=== PATIENT | female | born 2000 | race Caucasian/White ===

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

== ENCOUNTER 2021-08-27 21:50 | Emergency (ER) | payer BC, OTHER ==
[2021-08-27 22:40] VITALS: BP 114/71; PULSE 76
[2021-08-27] MEDS ORDERED: Sodium Chloride 0.9% 10 ML Syringe FLUSH PRN (22:44)
[2021-08-27] MEDS ORDERED: Ondansetron 4 MG/2 ML SDV IVPUSH ONE (22:44)
[2021-08-27] MEDS ORDERED: Sodium Chloride 0.9% 1,000 ML IV SCH (22:45)
--- NOTE | 2021-08-27 23:04 | EDM.PDOC ---
ED HPI GENERAL MEDICAL PROBLEM - General Chief Complaint: Abdominal Pain Stated Complaint: ABD PAIN Time Seen by Provider: 08/27/21 23:04 - History of Present Illness INITIAL COMMENTS - FREE TEXT/NARRATIVE: 20-year-old female presents the emergency room with what she thinks might be an appendicitis. The patient has had right lower quadrant pain through the day today. She has not had any associated nausea vomiting or diarrhea. She is having bowel movements. Last meal was around 6:00 this evening. Patient denies any history of abdominal surgeries in the past. She has some pain it is not real severe if she is out right and around it and bumped with a car does not seem to make it any worse. She is otherwise been eating and drinking normally. Treatments INSURANCE OFFICE SUPERVISOR: Reports: Other (see below) Other Treatments INSURANCE OFFICE SUPERVISOR: none Right Lower Abdomen Pain Score (Numeric/FACES): 5 - Related Data Allergies Allergy/AdvReac Type Severity Reaction Status Date / Time No Known Allergies Allergy Verified 08/27/21 22:58 Home Meds: Home Meds Ibuprofen 600 mg PO Q4H PRN 01/27/17 [History] Fexofenadine/Pseudoephedrine [Paula-D 24 Hour Tablet] 1 tab PO DAILY 08/27/21 [History] buPROPion [Wellbutrin] 150 mg PO DAILY 08/27/21 [History] norgestimate-ethinyl estradioL [Sprintec 28 Day Tablet] 1 tab PO DAILY 08/27/21 [History] Past Medical History - Past Health History Medical/Surgical History: Denies Medical/Surgical History Musculoskeletal History: Reports: Other (See Below) Other Musculoskeletal History: right wrist surgery - Past Surgical History HEENT Surgical History: Reports: Oral Surgery Social & Family History - Tobacco Use Tobacco Use Status *Q: Current Every Day Tobacco User Years of Tobacco use: 3 Packs/Tins Daily: 0.3 - Caffeine Use Caffeine Use: Reports: None - Recreational Drug Use Recreational Drug Use: No ED ROS GENERAL - Review of Systems Review Of Systems: See Below Constitutional: Reports: No Symptoms HEENT: Reports: No Symptoms Respiratory: Reports: No Symptoms Cardiovascular: Reports: No Symptoms GI/Abdominal: Reports: Abdominal Pain. Denies: Constipation, Diarrhea, Nausea, Vomiting : Reports: No Symptoms Musculoskeletal: Reports: No Symptoms Skin: Reports: No Symptoms Neurological: Reports: No Symptoms Psychiatric: Reports: No Symptoms ED EXAM, GENERAL - Physical Exam Exam: See Below Exam Limited By: No Limitations General Appearance: Alert, No Apparent Distress Head: Atraumatic, Normocephalic Neck: Normal Inspection, Supple, Non-Tender, Full Range of Motion Respiratory/Chest: No Respiratory Distress, Lungs Clear, Normal Breath Sounds Cardiovascular: Regular Rate, Rhythm, No Edema, No Murmur GI/Abdominal: Normal Bowel Sounds, Soft, Tender (Mild tenderness right lower quadrant with palpation no suprapubic discomfort no other areas of palpable discomfort). No: Distended, Guarding, Rigid, Rebound Back Exam: Normal Inspection. No: CVA Tenderness (L), CVA Tenderness (R) Extremities: Normal Inspection, No Pedal Edema Neurological: Alert, Oriented, Normal Cognition Skin Exam: Warm, Dry, Intact Course - Vital Signs Last Recorded V/S: Last Vital Signs Temp 37.1 C 08/27/21 22:38 Pulse 76 08/27/21 22:38 Resp 20 08/27/21 22:38 BP 114/71 08/27/21 22:38 Pulse Ox 99 08/27/21 22:38 - Orders/Labs/Meds Orders: Active Orders 24 hr Category Date Time Status Communication Order [RC] ASDIRECTED Care 08/27/21 22:45 Active Communication Order [RC] ASDIRECTED Care 08/27/21 22:45 Active Communication Order [RC] ASDIRECTED Care 08/27/21 22:45 Active Communication Order [RC] PER UNIT ROUTINE Care 08/27/21 22:45 Active Peripheral IV Care [RC] . DIRECTED Care 08/27/21 22:46 Active UA W/MICROSCOPIC [URIN] Stat Lab 08/28/21 00:20 Results Sodium Chloride 0.9% [Normal Saline] 1,000 ml Med 08/27/21 22:45 Active IV ASDIRECTED Sodium Chloride 0.9% [Saline Flush] Med 08/27/21 22:44 Active 10 ml FLUSH ASDIRECTED PRN Peripheral IV Insertion Adult [OM.PC] Stat Oth 08/27/21 22:45 Ordered Medication Orders Sodium Chloride (Normal Saline) 1,000 mls @ 150 mls/hr IV ASDIRECTED [facility] Last Admin: 08/27/21 23:56 Dose: 150 mls/hr Documented by: CAMRYN Sodium Chloride (Sodium Chloride 0.9% 10 Ml Syringe) 10 ml FLUSH ASDIRECTED PRN PRN Reason: Keep Vein Open Last Admin: 08/27/21 23:56 Dose: 10 ml Documented by: CAMRYN Labs: Laboratory Tests 08/27/21 08/27/21 08/27/21 Range/Units 23:25 23:25 23:25 WBC 9.77 (3.98-10.04) K/mm3 RBC 4.30 (3.98-5.22) M/mm3 Hgb 13.3 (11.2-15.7) gm/dl Hct 38.8 (34.1-44.9) % MCV 90.2 (79.4-94.8) fl MCH 30.9 (25.6-32.2) pg MCHC 34.3 (32.2-35.5) g/dl RDW Std Deviation 41.3 (36.4-46.3) fL Plt Count 469 H (182-369) K/mm3 MPV 8.4 L (9.4-12.3) fl Neut % (Auto) 50.0 (34.0-71.1) % Lymph % (Auto) 36.2 (19.3-51.7) % Swift % (Auto) 8.1 (4.7-12.5) % Eos % (Auto) 4.7 (0.7-5.8) Baso % (Auto) 0.6 (0.1-1.2) % Neut # (Auto) 4.88 (1.56-6.13) K/mm3 Lymph # (Auto) 3.54 (1.18-3.74) K/mm3 Swift # (Auto) 0.79 H (0.24-0.36) K/mm3 Eos # (Auto) 0.46 H (0.04-0.36) K/mm3 Baso # (Auto) 0.06 (0.01-0.08) K/mm3 Sodium 140 (136-145) mEq/L Potassium 4.2 (3.5-5.1) mEq/L Chloride 106 (98-107) mEq/L Carbon Dioxide 25 (21-32) mEq/L Anion Gap 13.2 (5-15) BUN 13 (7-18) mg/dL Creatinine 0.7 (0.55-1.02) mg/dL Est Cr Clr Drug Dosing 118.01 mL/min Estimated GFR (MDRD) > 60 (>60) mL/min BUN/Creatinine Ratio 18.6 H (14-18) Glucose 90 (70-99) mg/dL Calcium 8.2 L (8.5-10.1) mg/dL Magnesium 1.9 (1.8-2.4) mg/dL Total Bilirubin 0.3 (0.2-1.0) mg/dL AST 12 L (15-37) U/L ALT 20 (14-59) U/L Alkaline Phosphatase 64 (46-116) U/L C-Reactive Protein <0.2 (<1.0) mg/dL Total Protein 6.8 (6.4-8.2) g/dl Albumin 3.7 (3.4-5.0) g/dl Globulin 3.1 gm/dL Albumin/Globulin Ratio 1.2 (1-2) Lipase 76 (73-393) U/L HCG, Quant < 1.0 mIU/mL Urine Color (Yellow) Urine Appearance (Clear) Urine pH (5.0-8.0) Ur Specific Brohman (1.005-1.030) Urine Protein (Negative) Urine Glucose (UA) (Negative) Urine Ketones (Negative) Urine Occult Blood (Negative) Urine Nitrite (Negative) Urine Bilirubin (Negative) Urine Urobilinogen (0.2-1.0) Ur Leukocyte Esterase (Negative) 08/28/21 Range/Units 00:20 WBC (3.98-10.04) K/mm3 RBC (3.98-5.22) M/mm3 Hgb (11.2-15.7) gm/dl Hct (34.1-44.9) % MCV (79.4-94.8) fl MCH (25.6-32.2) pg MCHC (32.2-35.5) g/dl RDW Std Deviation (36.4-46.3) fL Plt Count (182-369) K/mm3 MPV (9.4-12.3) fl Neut % (Auto) (34.0-71.1) % Lymph % (Auto) (19.3-51.7) % Swift % (Auto) (4.7-12.5) % Eos % (Auto) (0.7-5.8) Baso % (Auto) (0.1-1.2) % Neut # (Auto) (1.56-6.13) K/mm3 Lymph # (Auto) (1.18-3.74) K/mm3 Swift # (Auto) (0.24-0.36) K/mm3 Eos # (Auto) (0.04-0.36) K/mm3 Baso # (Auto) (0.01-0.08) K/mm3 Sodium (136-145) mEq/L Potassium (3.5-5.1) mEq/L Chloride (98-107) mEq/L Carbon Dioxide (21-32) mEq/L Anion Gap (5-15) BUN (7-18) mg/dL Creatinine (0.55-1.02) mg/dL Est Cr Clr Drug Dosing mL/min Estimated GFR (MDRD) (>60) mL/min BUN/Creatinine Ratio (14-18) Glucose (70-99) mg/dL Calcium (8.5-10.1) mg/dL Magnesium (1.8-2.4) mg/dL Total Bilirubin (0.2-1.0) mg/dL AST (15-37) U/L ALT (14-59) U/L Alkaline Phosphatase (46-116) U/L C-Reactive Protein (<1.0) mg/dL Total Protein (6.4-8.2) g/dl Albumin (3.4-5.0) g/dl Globulin gm/dL Albumin/Globulin Ratio (1-2) Lipase (73-393) U/L HCG, Quant mIU/mL Urine Color Yellow (Yellow) Urine Appearance Clear (Clear) Urine pH 5.5 (5.0-8.0) Ur Specific Brohman 1.020 (1.005-1.030) Urine Protein Negative (Negative) Urine Glucose (UA) Negative (Negative) Urine Ketones Negative (Negative) Urine Occult Blood 3+ H (Negative) Urine Nitrite Negative (Negative) Urine Bilirubin Negative (Negative) Urine Urobilinogen 0.2 (0.2-1.0) Ur Leukocyte Esterase Negative (Negative) Meds: Medications Generic Name Dose Route Start Last Admin Trade Name Freq PRN Reason Stop Dose Admin Sodium Chloride 1,000 mls @ 150 mls/hr 08/27/21 22:45 08/27/21 23:56 Normal Saline IV 150 mls/hr ASDIRECTED NEHA Administration Sodium Chloride 10 ml 08/27/21 22:44 08/27/21 23:56 Sodium Chloride 0.9% 10 Ml Syringe FLUSH 10 ml ASDIRECTED PRN Administration Keep Vein Open Discontinued Medications Generic Name Dose Route Start Last Admin Trade Name Freq PRN Reason Stop Dose Admin Ondansetron HCl 4 mg 08/27/21 22:44 08/27/21 23:56 Ondansetron 4 Mg/2 Ml Sdv IVPUSH 08/27/21 22:45 4 mg ONETIME ONE Administration - Re-Assessments/Exams Free Text/Narrative Re-Assessment/Exam: 08/27/21 23:20 Exam shows some vague right lower quadrant discomfort with palpation no rigidity rebound or guarding noted. We will go ahead and check some labs, and take it from there 08/28/21 00:46 Laboratory evaluation is noncontributory. Over time the patient's pain is getting better. Discussed further evaluation options such as CT and all parties involved agree this probably is not the most appropriate as her pain is getting better. The patient agrees to promptly return to the emergency room for symptoms worsen or if she is not better in 24 hours. Departure - Departure Time of Disposition: 00:47 Disposition: Home, Self-Care 01 Clinical Impression: Abdominal pain of unknown etiology - Discharge Information Referrals: Mary Ann Barrow MD [Primary Care Provider] - Forms: ED Department Discharge Additional Instructions: Liquid diet for the next 24 hours then slowly advance as tolerated. Return to the emergency room in 24 hours if not better return much sooner if getting worse Sepsis Event Note (ED) - Focused Exam Vital Signs: Vital Signs Temp Pulse Resp BP Pulse Ox 08/27/21 22:38 37.1 C 76 20 114/71 99 - My Orders Last 24 Hours: My Active Orders 08/27/21 22:44 Sodium Chloride 0.9% [Saline Flush] 10 ml FLUSH ASDIRECTED PRN 08/27/21 22:45 Communication Order [RC] ASDIRECTED Communication Order [RC] ASDIRECTED Communication Order [RC] ASDIRECTED Communication Order [RC] PER UNIT ROUTINE Sodium Chloride 0.9% [Normal Saline] 1,000 ml IV ASDIRECTED Peripheral IV Insertion Adult [OM.PC] Stat 08/27/21 22:46 Peripheral IV Care [RC] . DIRECTED 08/28/21 00:20 UA W/MICROSCOPIC [URIN] Stat - Assessment/Plan Last 24 Hours: My Active Orders 08/27/21 22:44 Sodium Chloride 0.9% [Saline Flush] 10 ml FLUSH ASDIRECTED PRN 08/27/21 22:45 Communication Order [RC] ASDIRECTED Communication Order [RC] ASDIRECTED Communication Order [RC] ASDIRECTED Communication Order [RC] PER UNIT ROUTINE Sodium Chloride 0.9% [Normal Saline] 1,000 ml IV ASDIRECTED Peripheral IV Insertion Adult [OM.PC] Stat 08/27/21 22:46 Peripheral IV Care [RC] . DIRECTED 08/28/21 00:20 UA W/MICROSCOPIC [URIN] Stat
== END 2021-08-28 00:55 | disposition home or self-care (01) ==
LOC: JD.ED 21:50
DX: R10.31 Right lower quadrant pain (principal); Z72.0 Tobacco use
CPT/HCPCS: 36415; 80053; 81001; 83690; 83735; 84702; 85025; 86140; 96374; 99284; J2405; J7030